=== PATIENT | female | born 1965 | race Caucasian/White ===

== ENCOUNTER 2023-01-20 15:19 | Inpatient (IN) | payer SELFPAY ==
[2023-01-20 16:31] LABS: #Eosinphils 0.1 10x3/uL (0.0-0.5); #Monocytes 0.4 10x3/uL (0.0-1.1); #Neutrophils 2.8 10x3/uL (1.5-8.4); %Basophils 0.8 % (0.0-2.0); %Eosinophils 1.8 % (0.0-6.0); %Lymphocytes 15.6 % (18.0-47.0); %Monocytes 9.9 % (0.0-10.0); %Neutrophils 71.6 % (40.0-75.0); Hematocrit 30.1 % (34.9-44.5); Hemoglobin 9.6 g/dL (12.0-15.5); Mean Corpuscular HGB CONC 31.9 g/dL (32.0-36.0); Mean Corpuscular Hemoglobin 27.6 pg (27.0-33.0); Mean Corpuscular Volume 86.5 fl (81.6-98.3); Mean Platelet Volume 11.9 fl (7.4-10.4); Platelet Count 145 10x3/uL (150-450); RBC Distribution Width 16.4 % (11.5-14.5); Red Blood Cell (RBC) Count 3.48 10x6/uL (3.90-5.03); White Blood Cell (WBC) Count 3.9 10x3/uL (3.5-10.5)
[2023-01-20 16:41] LABS: ALT (SGPT) 90 U/L (8-55); AST (SGOT) 77 U/L (5-34); Albumin 3.6 g/dL (3.5-5.0); Alkaline Phosphatase 81 U/L (40-110); Anion Gap 13 mmol/L (10-20); BUN (Urea Nitrogen) 21 mg/dL (9.8-20.1); Bilirubin, Total 0.4 mg/dL (0.2-1.2); Calc. Creatinine Clearance 0 mL/min (70-130); Calcium 8.4 mg/dL (7.8-10.44); Carbon Dioxide 25 mmol/L (22-29); Chloride 110 mmol/L (98-107); Estimated GFR 82; Globulin 1.8 g/dL (2.4-3.5); Glucose 139 mg/dL (70-105); Potassium 2.7 mmol/L (3.5-5.1); Protein, Total 5.4 g/dL (6.0-8.3); Sodium 145 mmol/L (136-145)
[2023-01-20 16:47] LABS: Troponin I Less than 0.010 ng/mL (< 0.028)
[2023-01-20] MEDS ORDERED: Potassium Chloride 20 MEQ TAB ONE (16:58)
[2023-01-20] MEDS ORDERED: Acetaminophen 500 MG TAB ONE (17:27)
[2023-01-20 17:43] LABS: Bilirubin Neg (Negative); Blood, Urine Negative (Negative); Clarity Clear (Clear); Glucose, Urine (Dipstick) Normal (Negative); Ketone, Urine Negative (Negative); Leukocyte 100 (Negative); Nitrite Negative (Negative); Protein, Urine (Dipstick) 15 mg/dl (Neg-Trace); Specific Gravity, Urine 1.005 (1.005-1.030); Urobilinogen Normal mg/dL (Less than 2)
[2023-01-20 17:57] LABS: Bacteria/HPF Rare-Few HPF (None Seen); CAUTI Indications for Culture Fever or rigors; RBC/HPF 0-3 HPF (0-3); Squamous Epithelial 0-3 HPF (0-3)
[2023-01-20 17:59] LABS: Urine Culture Reflex Yes Yes
[2023-01-20] MEDS ORDERED: Furosemide 40 MG/4 ML VIAL ONE (18:26)
[2023-01-20] MEDS ORDERED: HumaLOG 300 UNITS/3 ML VIAL SC PRN (20:28)
[2023-01-20] MEDS ORDERED: Acetaminophen 325 MG TAB PO PRN (20:28)
[2023-01-20] MEDS ORDERED: Dextrose 50% Abboject 50 ML SYRINGE SLOW IVP PRN (20:28)
[2023-01-20] MEDS ORDERED: Guaifenesin DM 100-10/5 ML UDCUP PO PRN (20:28)
[2023-01-20] MEDS ORDERED: Dextrose 5% in Water 1,000 ML IV PRN (20:28)
[2023-01-20] MEDS ORDERED: Senokot S 8.6-50 MG TAB PO PRN (20:28)
[2023-01-20] MEDS ORDERED: Calcium Carbonate 500 MG ChewTAB PO PRN (20:28)
[2023-01-20] MEDS ORDERED: Ondansetron PF 4 MG/2 ML Vial IVP PRN (20:28)
[2023-01-20] MEDS ORDERED: Glucagon 1 MG/ML KIT IM PRN (20:28)
[2023-01-20 21:03] LABS: Troponin I Less than 0.010 ng/mL (< 0.028)
[2023-01-20 22:14] VITALS: BMI 21.3
[2023-01-20] MEDS ORDERED: Atorvastatin Calcium 10 MG TAB PO SCH (22:15)
[2023-01-20] MEDS ORDERED: Potassium Chloride 20 MEQ TAB PO SCH (22:30)
[2023-01-20] MEDS ORDERED: cefTRIAXone\\ROCEPHIN 1 GM in Sodium Chloride 0.9% 100 ML IVPB SCH (22:30)
[2023-01-20] MEDS ORDERED: Ibuprofen 200 MG TAB PO SCH (23:30)
[2023-01-21] MEDS ORDERED: Nitrofurantoin Monohyd/M-Cryst 100 MG CAP PO SCH (00:30)
[2023-01-21] MEDS ORDERED: Gabapentin 300 MG CAP PO SCH (01:15)
[2023-01-21] MEDS ORDERED: Potassium Chloride 20 MEQ TAB PO SCH ×4 (01:30→13:00)
[2023-01-21] MEDS: Levothyroxine Sodium 25 MCG TAB PO SCH ×3 (05:28→09:10)
[2023-01-21 05:50] LABS: ALT (SGPT) 116 U/L (8-55); AST (SGOT) 141 U/L (5-34); Albumin 2.8 g/dL (3.5-5.0); Alkaline Phosphatase 98 U/L (40-110); Anion Gap 13 mmol/L (10-20); BUN (Urea Nitrogen) 25 mg/dL (9.8-20.1); Bilirubin, Total 0.3 mg/dL (0.2-1.2); Calc. Creatinine Clearance 63 mL/min (70-130); Carbon Dioxide 26 mmol/L (22-29); Chloride 110 mmol/L (98-107); Estimated GFR 85; Globulin 1.6 g/dL (2.4-3.5); Glucose 98 mg/dL (70-105); Magnesium 1.2 mg/dL (1.6-2.6); Protein, Total 4.4 g/dL (6.0-8.3); Sodium 146 mmol/L (136-145)
[2023-01-21 05:54] LABS: Potassium 2.6 mmol/L (3.5-5.1)
[2023-01-21] MEDS ORDERED: Magnesium 2 GM/50 ML(in water) 2 GM in Premix 1 BAG IVPB SCH (06:00)
[2023-01-21 06:02] LABS: Thyroid Stimulating Hormone 1.6219 uIU/mL (0.35-4.94)
[2023-01-21 06:20] LABS: CK (CPK) 75 U/L (29-168)
[2023-01-21 07:58] LABS: HBSAg Index 0.11 S/CO (0-0.99); Hep B Surf Ag Non-Reactive S/CO (NonReactive)
[2023-01-21] MEDS ORDERED: Carvedilol 3.125 MG TAB PO SCH (08:00)
[2023-01-21 08:46] LABS: Free T4 (Free Thyroxine) 0.96 ng/dL (0.70-1.48)
[2023-01-21] MEDS: Nitrofurantoin Monohyd/M-Cryst 100 MG CAP PO SCH ×2 (08:58→21:38)
[2023-01-21] MEDS ORDERED: Lisinopril 10 MG TAB PO SCH (09:00)
[2023-01-21] MEDS ORDERED: Hydrochlorothiazide 25 MG TAB PO SCH (09:00)
[2023-01-21] MEDS: Lisinopril 2.5 MG TAB PO SCH (09:11)
[2023-01-21] MEDS ORDERED: Magnesium Sulfate/D5W 1 GM/100 ML BAG IVPB SCH (10:00)
[2023-01-21] MEDS ORDERED: Potassium Chloride 20 MEQ in Premix 1 BAG IVPB SCH (10:00)
[2023-01-21] MEDS ORDERED: Magnesium Sulfate/D5W 1 GM in Premix 1 BAG IVPB SCH (10:00)
[2023-01-21] MEDS: Fioricet 325/50/40 mg Tablet PO PRN (11:17)
[2023-01-21 12:32] LABS: Anion Gap 10 mmol/L (10-20); BUN (Urea Nitrogen) 21 mg/dL (9.8-20.1); Calc. Creatinine Clearance 67 mL/min (70-130); Calcium 8.3 mg/dL (7.8-10.44); Carbon Dioxide 27 mmol/L (22-29); Chloride 110 mmol/L (98-107); Estimated GFR 90; Glucose 73 mg/dL (70-105); Sodium 144 mmol/L (136-145)
[2023-01-21 13:13] LABS: Hemoglobin A1c 5.1 % (4.0-6.0)
[2023-01-21 13:30] LABS: HBCM Index 0.13 S/CO (0-0.79); Hep A IgM AB Non-Reactive S/CO (NonReactive); Hep A IgM S/CO 0.25 S/CO (0-0.79); Hep C IgG Ab Non-Reactive S/CO (NonReactive); Hep C Index 0.04 S/CO (0-0.79); Hepatitis B Core IgM Abs Non-Reactive S/CO (NonReactive)
[2023-01-21 14:21] LABS: Amphetamine Not Detected (NotDetected); Barbiturates Screen Not Detected (NotDetected); Benzodiazepine Screen Not Detected (NotDetected); Cocaine Metabolite Screen Not Detected (NotDetected); Methadone Not Detected (NotDetected); Methamphetamine Not Detected (NotDetected); Opiate Screen Not Detected (NotDetected); Oxycodone Screen Not Detected (NotDetected); Phencyclidine (PCP) Not Detected (NotDetected); THC/Cannabinoid Screen Not Detected (NotDetected); Tricyclic Screen Not Detected (NotDetected)
[2023-01-21] MEDS: Furosemide 40 MG/4 ML VIAL SLOW IVP SCH (15:35)
[2023-01-21] MEDS: cefTRIAXone\\ROCEPHIN 1 GM in Sodium Chloride 0.9% 100 ML IVPB SCH (15:35)
[2023-01-21] MEDS: Potassium Chloride 20 MEQ TAB PO SCH (21:38)
[2023-01-21] MEDS: Atorvastatin Calcium 10 MG TAB PO SCH (21:38)
[2023-01-22] MEDS: Potassium Chloride 20 MEQ TAB PO SCH (01:15)
[2023-01-22 05:22] LABS: #Eosinphils 0.1 10x3/uL (0.0-0.5); #Monocytes 0.6 10x3/uL (0.0-1.1); #Neutrophils 2.4 10x3/uL (1.5-8.4); %Basophils 0.8 % (0.0-2.0); %Eosinophils 2.1 % (0.0-6.0); %Lymphocytes 18.7 % (18.0-47.0); %Monocytes 14.5 % (0.0-10.0); %Neutrophils 63.6 % (40.0-75.0); Hematocrit 26.9 % (34.9-44.5); Hemoglobin 8.6 g/dL (12.0-15.5); Mean Corpuscular Hemoglobin 27.7 pg (27.0-33.0); Mean Corpuscular Volume 86.8 fl (81.6-98.3); Mean Platelet Volume 11.9 fl (7.4-10.4); Platelet Count 144 10x3/uL (150-450); RBC Distribution Width 16.7 % (11.5-14.5); White Blood Cell (WBC) Count 3.8 10x3/uL (3.5-10.5)
[2023-01-22 05:39] LABS: Troponin I 0.109 ng/mL (< 0.028)
[2023-01-22] MEDS: Furosemide 40 MG/4 ML VIAL SLOW IVP SCH ×2 (06:43→13:43)
[2023-01-22] MEDS: Levothyroxine Sodium 25 MCG TAB PO SCH (06:43)
[2023-01-22] MEDS: Lisinopril 2.5 MG TAB PO SCH (08:29)
[2023-01-22] MEDS: Nitrofurantoin Monohyd/M-Cryst 100 MG CAP PO SCH ×2 (08:29→20:40)
[2023-01-22 08:41] LABS: Anion Gap 14 mmol/L (10-20); BUN (Urea Nitrogen) 22 mg/dL (9.8-20.1); Calc. Creatinine Clearance 50 mL/min (70-130); Calcium 8.6 mg/dL (7.8-10.44); Carbon Dioxide 28 mmol/L (22-29); Chloride 107 mmol/L (98-107); Estimated GFR 63; Glucose 95 mg/dL (70-105); Potassium 4.5 mmol/L (3.5-5.1); Sodium 144 mmol/L (136-145)
[2023-01-22] MEDS: cefTRIAXone\\ROCEPHIN 1 GM in Sodium Chloride 0.9% 100 ML IVPB SCH (13:43)
[2023-01-22] MEDS: Atorvastatin Calcium 10 MG TAB PO SCH (20:40)
[2023-01-23] MEDS: Fioricet 325/50/40 mg Tablet PO PRN ×2 (01:57→08:51)
[2023-01-23] MEDS: Levothyroxine Sodium 25 MCG TAB PO SCH (05:23)
[2023-01-23] MEDS: Furosemide 40 MG/4 ML VIAL SLOW IVP SCH ×2 (05:23→15:01)
[2023-01-23 08:15] LABS: #Eosinphils 0.1 10x3/uL (0.0-0.5); #Monocytes 0.6 10x3/uL (0.0-1.1); #Neutrophils 1.8 10x3/uL (1.5-8.4); %Basophils 1.2 % (0.0-2.0); %Eosinophils 2.7 % (0.0-6.0); %Lymphocytes 23.9 % (18.0-47.0); %Neutrophils 54.9 % (40.0-75.0); Hematocrit 29.9 % (34.9-44.5); Hemoglobin 9.6 g/dL (12.0-15.5); Mean Corpuscular HGB CONC 32.1 g/dL (32.0-36.0); Mean Corpuscular Hemoglobin 28.3 pg (27.0-33.0); Mean Corpuscular Volume 88.2 fl (81.6-98.3); Mean Platelet Volume 12.3 fl (7.4-10.4); Platelet Count 156 10x3/uL (150-450); RBC Distribution Width 16.7 % (11.5-14.5); Red Blood Cell (RBC) Count 3.39 10x6/uL (3.90-5.03); White Blood Cell (WBC) Count 3.3 10x3/uL (3.5-10.5)
[2023-01-23 08:29] LABS: Anion Gap 16 mmol/L (10-20); BUN (Urea Nitrogen) 23 mg/dL (9.8-20.1); Calc. Creatinine Clearance 39 mL/min (70-130); Calcium 8.6 mg/dL (7.8-10.44); Carbon Dioxide 31 mmol/L (22-29); Chloride 99 mmol/L (98-107); Estimated GFR 55; Glucose 101 mg/dL (70-105); Potassium 3.8 mmol/L (3.5-5.1); Sodium 142 mmol/L (136-145)
[2023-01-23] MEDS: Lisinopril 2.5 MG TAB PO SCH (08:50)
[2023-01-23] MEDS: Nitrofurantoin Monohyd/M-Cryst 100 MG CAP PO SCH ×2 (08:52→20:07)
[2023-01-23] MEDS: cefTRIAXone\\ROCEPHIN 1 GM in Sodium Chloride 0.9% 100 ML IVPB SCH (14:57)
[2023-01-23] MEDS: Atorvastatin Calcium 10 MG TAB PO SCH (20:07)
[2023-01-24] MEDS ORDERED: diphenhydrAMINE 25 MG CAP PO SCH (02:00)
[2023-01-24] MEDS: Levothyroxine Sodium 25 MCG TAB PO SCH (05:58)
[2023-01-24] MEDS: Furosemide 40 MG/4 ML VIAL SLOW IVP SCH (06:02)
[2023-01-24 06:18] LABS: Anion Gap 15 mmol/L (10-20); BUN (Urea Nitrogen) 29 mg/dL (9.8-20.1); Calc. Creatinine Clearance 48 mL/min (70-130); Calcium 8.4 mg/dL (7.8-10.44); Carbon Dioxide 30 mmol/L (22-29); Chloride 100 mmol/L (98-107); Estimated GFR 66; Glucose 89 mg/dL (70-105); Potassium 3.8 mmol/L (3.5-5.1); Sodium 141 mmol/L (136-145)
[2023-01-24 06:19] LABS: #Eosinphils 0.2 10x3/uL (0.0-0.5); #Monocytes 0.6 10x3/uL (0.0-1.1); #Neutrophils 1.7 10x3/uL (1.5-8.4); %Eosinophils 4.7 % (0.0-6.0); %Lymphocytes 33.1 % (18.0-47.0); %Neutrophils 44.7 % (40.0-75.0); Hemoglobin 9.5 g/dL (12.0-15.5); Mean Corpuscular HGB CONC 31.7 g/dL (32.0-36.0); Mean Corpuscular Hemoglobin 27.5 pg (27.0-33.0); Mean Platelet Volume 11.5 fl (7.4-10.4); Platelet Count 199 10x3/uL (150-450); RBC Distribution Width 16.5 % (11.5-14.5); Red Blood Cell (RBC) Count 3.45 10x6/uL (3.90-5.03); White Blood Cell (WBC) Count 3.8 10x3/uL (3.5-10.5)
[2023-01-24] MEDS: Nitrofurantoin Monohyd/M-Cryst 100 MG CAP PO SCH (09:47)
[2023-01-24 17:18] VITALS: BP 135/72; TEMP 98.3
== END 2023-01-24 16:30 | disposition home or self-care (01) | DRG 291 ==
LOC: CSHERS 15:19 → CSHTELE 22:06 → OBSVTOIN 01-22 15:07
PROVIDERS: ADMIT Student in an Organized Health Care Education/Training Program; ATTEND Internal Medicine
DX: I11.0 Hypertensive heart disease with heart failure (principal); I50.31 Acute diastolic (congestive) heart failure; N39.0 Urinary tract infection, site not specified; E87.6 Hypokalemia; E11.9 Type 2 diabetes mellitus without complications; E78.5 Hyperlipidemia, unspecified; E03.9 Hypothyroidism, unspecified; D64.9 Anemia, unspecified; E83.42 Hypomagnesemia; G43.909 Migraine, unspecified, not intractable, without status migrainosus; Z90.49 Acquired absence of other specified parts of digestive tract; Z90.710 Acquired absence of both cervix and uterus; Z98.890 Other specified postprocedural states; Z91.199 Patient's noncompliance with other medical treatment and regimen due to unspecified reason; I25.2 Old myocardial infarction; Z88.1 Allergy status to other antibiotic agents; Z88.8 Allergy status to other drugs, medicaments and biological substances; Z91.013 Allergy to seafood
CPT/HCPCS: 36415; 36416; 70450; 71045; 80048; 80053; 80074; 80306; 81001; 82550; 83036; 83735; 83880; 84439; 84443; 84484; 85025; 87086; 93005; 93306; 93970; 96372; 96374; 96375; 96376; G0378; J0696; J1650; J1940; J3475; J3480; J3490